=== PATIENT | female | born 1975 | race Hispanic/Latino ===

== ENCOUNTER 2018-07-19 08:50 | Emergency (ER) | payer OTHER ==
[2018-07-19] MEDS ORDERED: IBUPROFEN 400 MG TAB ONE (09:57)
--- NOTE | 2018-07-19 10:50 | RAD REPORT ---
EXAM DESCRIPTION: RAD - Humerus Left - 07/19/2018 9:22 am CLINICAL HISTORY: Left arm pain following lifting injury COMPARISON: None. FINDINGS: No fracture is identified. There is no dislocation or periosteal reaction noted. AC joint is normal. No gross evidence for hematoma or other abnormality of the soft tissues. No foreign body or air. IMPRESSION: Negative left humerus examination.
--- NOTE | 2018-07-19 11:08 | EDPHYS ---
Physician Documentation [facility] Name: Marion Dolan Age: 42 yrs Sex: Female : 1975 Arrival Date: 07/19/2018 Time: 08:53 Bed 16 Private MD: out of town, doctor ED Physician Elliot Dalton HPI: 07/19 09:05 This 42 yrs old Female presents to ER via Ambulatory with complaints of Left pm1 Arm Injury. 09:05 The patient or guardian complains of pain, that is acute. The complaints affect the pm1 left bicep. Context: The problem was sustained at work, resulted from lifting or pulling, a patient. Onset: The symptoms/episode began/occurred 4 day(s) ago. Treatment prior to arrival includes: over the counter medications, NSAIDS. Modifying factors: The symptoms are alleviated by remaining still, the symptoms are aggravated by movement, bending left elbow and abduction of left arm. Associated signs and symptoms: Pertinent negatives: deformity, fever, numbness, tingling. Severity of symptoms: in the emergency department the symptoms are actually worse. The patient has not experienced similar symptoms in the past. 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 Pain to left bicep area with palpation, extension and flexion of left elbow, and abduction of left arm. 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 - Social history:: Smoking status: Patient/guardian denies using tobacco. - Ebola Screening: : Patient negative for fever greater than or equal to 101.5 degrees Fahrenheit, and additional compatible Ebola Virus Disease symptoms Patient denies exposure to infectious person Patient denies travel to an Ebola-affected area in the 21 days before illness onset No symptoms or risks identified at this time. ROS: 09:05 Constitutional: Negative for fever, chills, and weight loss, Eyes: Negative for injury, pm1 pain, redness, and discharge, ENT: Negative for injury, pain, and discharge, Neck: Negative for injury, pain, and swelling, Cardiovascular: Negative for chest pain, palpitations, and edema, Respiratory: Negative for shortness of breath, cough, wheezing, and pleuritic chest pain, Abdomen/GI: Negative for abdominal pain, nausea, vomiting, diarrhea, and constipation, Back: Negative for injury and pain, : Negative for injury, bleeding, discharge, and swelling. 09:05 Skin: Negative for injury, rash, and discoloration. 09:05 Neuro: Negative for headache, weakness, numbness, tingling, and seizure. 09:05 MS/extremity: Positive for pain, of the left bicep, Negative for deformity, swelling. Exam: 09:12 Constitutional: This is a well developed, well nourished patient who is awake, alert, pm1 and in no acute distress. Head/Face: Normocephalic, atraumatic. Eyes: Pupils equal round and reactive to light, extra-ocular motions intact. Lids and lashes normal. Conjunctiva and sclera are non-icteric and not injected. Cornea within normal limits. Periorbital areas with no swelling, redness, or edema. Neck: Trachea midline, no thyromegaly or masses palpated, and no cervical lymphadenopathy. Supple, full range of motion without nuchal rigidity, or vertebral point tenderness. No Meningismus. Chest/axilla: Normal chest wall appearance and motion. Nontender with no deformity. No lesions are appreciated. Cardiovascular: Regular rate and rhythm with a normal S1 and S2. No gallops, murmurs, or rubs. Normal PMI, no JVD. No pulse deficits. Respiratory: Lungs have equal breath sounds bilaterally, clear to auscultation and percussion. No rales, rhonchi or wheezes noted. No increased work of breathing, no retractions or nasal flaring. Abdomen/GI: Soft, non-tender, with normal bowel sounds. No distension or tympany. No guarding or rebound. No evidence of tenderness throughout. Back: No spinal tenderness. No costovertebral tenderness. Full range of motion. Skin: Warm, dry with normal turgor. Normal color with no rashes, no lesions, and no evidence of cellulitis. 09:12 Musculoskeletal/extremity: Extremities: grossly normal except: noted in the left bicep: tenderness, No tenderness or pain with movement to left elbow and left shoulder, Circulation is intact in all extremities. Sensation intact. Vital Signs: 09:04 BP 139 / 69; Pulse 76; Resp 16; Temp 97.2(O); Pulse Ox 98% on R/A; Weight 127.01 kg; iw Height 5 ft. 4 in. (162.56 cm); Pain 9/10; 10:09 BP 135 / 83; Pulse 71; Resp 18; Pulse Ox 98% on R/A; Pain 9/10; em 09:04 Body Mass Index 48.06 (127.01 kg, 162.56 cm) iw MDM: 08:58 Patient medically screened. pm1 11:05 Data reviewed: vital signs. Data interpreted: Pulse oximetry: on room air is 98 %. pm1 Interpretation: normal. Counseling: I had a detailed discussion with the patient and/or guardian regarding: the historical points, exam findings, and any diagnostic results supporting the discharge/admit diagnosis, radiology results, the need for outpatient follow up, for definitive care, a orthopedic surgeon, to return to the emergency department if symptoms worsen or persist or if there are any questions or concerns that arise at home. 07/19 09:02 Order name: Humerus Left XRAY; Complete Time: 10:52 pm1 07/19 11:07 Order name: Sling; Complete Time: 11:27 pm1 Administered Medications: 09:55 Drug: Ibuprofen 800 mg Route: PO; em 11:27 Follow up: Response: No adverse reaction; Pain is decreased em Disposition: 15:13 Co-signature as Attending Physician, Elliot Dalton MD. rn Disposition: 07/19/18 11:07 Discharged to Home. Impression: Strain of unspecified muscle, fascia and tendon at shoulder and upper arm level, left arm. - Condition is Stable. - Discharge Instructions: Muscle Strain, How to Use a Sling. - Prescriptions for Cyclobenzaprine 10 mg Oral Tablet - take 1 tablet by ORAL route every 8 hours As needed; 30 tablet. Diclofenac Sodium 75 mg Oral Tablet Sustained Release - take 1 tablet by ORAL route 2 times per day; 30 tablet. - Work release form, Medication Reconciliation Form, Thank You Letter, Antibiotic Education, Prescription Opioid Use form. - Follow up: Emergency Department; When: As needed; Reason: Worsening of condition. Follow up: Private Physician; When: 2 - 3 days; Reason: Recheck today's complaints, Continuance of care, Re-evaluation by your physician. - Problem is new. - Symptoms have improved. Signatures: Dispatcher [employer] EDWI Andrés Bartlett, RAILROAD OPERATING ENGINEER RAILROAD OPERATING ENGINEER Ese López RN RN iw Nieto, Roman, MD MD rn Marinas, Patrick, SEMICONDUCTORS WAFER BREAKER SEMICONDUCTORS WAFER BREAKER pm1 Corrections: (The following items were deleted from the chart) 11:38 11:07 07/19/2018 11:07 Discharged to Home. Impression: Strain of unspecified muscle, em fascia and tendon at shoulder and upper arm level, left arm. Condition is Stable. Forms are Medication Reconciliation Form, Thank You Letter, Antibiotic Education, Prescription Opioid Use. Follow up: Emergency Department; When: As needed; Reason: Worsening of condition. Follow up: Private Physician; When: 2 - 3 days; Reason: Recheck today's complaints, Continuance of care, Re-evaluation by your physician. Problem is new. Symptoms have improved. pm1
--- NOTE | 2018-07-19 11:08 | ER ---
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 Transition of care: patient was not received from another setting of care. Onset of symptoms was July 15, 2018. Risk Assessment: Do you want to hurt yourself or someone else? Patient reports no desire to harm self or others. Initial Sepsis Screen: Does the patient meet any 2 criteria? No. Patient's initial sepsis screen is negative. Does the patient have a suspected source of infection? No. Patient's initial sepsis screen is negative. Care prior to arrival: None. 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 - Social history:: Smoking status: Patient/guardian denies using tobacco. - Ebola Screening: : Patient negative for fever greater than or equal to 101.5 degrees Fahrenheit, and additional compatible Ebola Virus Disease symptoms Patient denies exposure to infectious person Patient denies travel to an Ebola-affected area in the 21 days before illness onset No symptoms or risks identified at this time. Screenin:07 Abuse screen: Denies threats or abuse. Nutritional screening: No deficits noted. em Tuberculosis screening: No symptoms or risk factors identified. Fall Risk None identified. Assessment: 09:05 General: Appears in no apparent distress. comfortable, Behavior is calm, cooperative. em Pain: Complains of pain in left bicep. Neuro: Level of Consciousness is awake, alert, obeys commands, Oriented to person, place, time, situation. Cardiovascular: Capillary refill < 3 seconds Patient's skin is warm and dry. Respiratory: Airway is patent Respiratory effort is even, unlabored, Respiratory pattern is regular, symmetrical. GI: Abdomen is obese. : No signs and/or symptoms were reported regarding the genitourinary system. EENT: No signs and/or symptoms were reported regarding the EENT system. Derm: Skin is intact, is healthy with good turgor, Skin is pink, warm \T\ dry. Musculoskeletal: Capillary refill < 3 seconds, Range of motion: limited in left shoulder and left elbow Reports pain since trying to lift a patient on Sunday, pain has steadily increased since Sunday. 09:30 Reassessment: Patient appears in no apparent distress at this time. I agree with above iw assessment by Andrés Bartlett diagnostic technologist. 09:45 Reassessment: Patient appears in no apparent distress at this time. Patient is alert, em oriented x 3, equal unlabored respirations, skin warm/dry/pink. reports pain, provider notified, new medication orders received. 10:45 Reassessment: Patient appears in no apparent distress at this time. Patient and/or em family updated on plan of care and expected duration. Pain level reassessed. Patient is alert, oriented x 3, equal unlabored respirations, skin warm/dry/pink. rates pain 4/10 Patient states feeling better. Vital Signs: 09:04 BP 139 / 69; Pulse 76; Resp 16; Temp 97.2(O); Pulse Ox 98% on R/A; Weight 127.01 kg; iw Height 5 ft. 4 in. (162.56 cm); Pain 9/10; 10:09 BP 135 / 83; Pulse 71; Resp 18; Pulse Ox 98% on R/A; Pain 9/10; em 09:04 Body Mass Index 48.06 (127.01 kg, 162.56 cm) iw ED Course: 08:53 Patient arrived in ED. mr 08:53 out of town, doctor is Private Physician. mr 08:58 Gregg Thompson NP is PHCP. pm1 08:58 Elliot Dalton MD is Attending Physician. pm1 09:04 Triage completed. iw 09:07 Arm band placed on. iw 09:13 Andrés Bartlett LVN is Primary Nurse. em 09:14 Patient has correct armband on for positive identification. Bed in low position. Call em light in reach. Adult w/ patient. 09:21 X-ray completed. Portable x-ray completed in exam room. Patient tolerated procedure jb2 well. 09:22 Humerus Left XRAY In Process Unspecified. EDMS 11:37 No provider procedures requiring assistance completed. Patient did not have IV access em during this emergency room visit. 11:38 Sling applied to left arm. em Administered Medications: 09:55 Drug: Ibuprofen 800 mg Route: PO; em 11:27 Follow up: Response: No adverse reaction; Pain is decreased em Outcome: 11:07 Discharge ordered by MD. pm1 11:37 Discharged to home ambulatory. em 11:37 Condition: good 11:37 Discharge instructions given to patient, Instructed on discharge instructions, follow up and referral plans. no drinking with medication, no driving heavy equipment, medication usage, Demonstrated understanding of instructions, follow-up care, medications, Prescriptions given X 2. 11:38 Patient left the ED. em Signatures: Dispatcher [employer] EDNC Tiffanie Baca Doroteo jb2 Andrés Bartlett LVN LVN em Ese Ramirez, SEMAJ RN iw Gregg Thompson, EUNICE PUNCH MOLDER pm1
== END 2018-07-19 11:38 | disposition home or self-care (01) ==
LOC: ER 08:50
DX: S46.912A Strain of unspecified muscle, fascia and tendon at shoulder and upper arm level, left arm, initial encounter (principal); X50.0XXA Overexertion from strenuous movement or load, initial encounter; Y93.89 Activity, other specified; Y92.89 Other specified places as the place of occurrence of the external cause; Y99.8 Other external cause status; Z88.8 Allergy status to other drugs, medicaments and biological substances; I10 Essential (primary) hypertension; F32.9 Major depressive disorder, single episode, unspecified; E03.9 Hypothyroidism, unspecified
CPT/HCPCS: 99284